=== PATIENT | male | born 1975 | race Caucasian/White ===

== ENCOUNTER 2021-02-12 02:58 | Emergency (ER) | payer SELFPAY ==
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
[2021-02-12 03:07] VITALS: BP 106/82; PULSE 86; RESP 12; O2SAT 100
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
--- NOTE | 2021-02-12 04:18 | PC.NURSE ---
Pt resting on cart with girlfriend at bedside. Both updated on poc and all questions and concerns addressed. Advised to press call button for assistance.
--- NOTE | 2021-02-12 04:18 | PC.NURSE ---
Girlfriend presented to bedside. Pt to ct via cart.
--- NOTE | 2021-02-12 04:32 | PC.NURSE ---
Pt returned from radiology.
--- NOTE | 2021-02-12 04:33 | PC.NURSE ---
screen making technician states pt refused xray so he only went for CT.
--- NOTE | 2021-02-12 04:39 | PC.NURSE ---
Pt ambulated in [place] to restroom with steady gait. C-collar remains in place. Pt alert and oriented x4. No complaints or concerns voiced at this time.
[2021-02-12 05:52] VITALS: BP 111/88; PULSE 95; RESP 12; TEMP 37; O2SAT 95
== END 2021-02-12 05:57 | disposition left against medical advice (07) ==
PROVIDERS: Emergency Provider Emergency Medicine
DX: M54.2 Cervicalgia (principal); S00.81XA Abrasion of other part of head, initial encounter; V28.4XXA Motorcycle driver injured in noncollision transport accident in traffic accident, initial encounter
CPT/HCPCS: 70450; 72125; 99284

== ENCOUNTER 2021-08-21 03:42 | Emergency (ER) | payer SELFPAY ==
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
[2021-08-21 04:17] VITALS: BP 131/81; PULSE 90; RESP 14; TEMP 36.6; O2SAT 100
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
--- NOTE | 2021-08-21 04:22 | PC.NURSE ---
to radiology.per cattle trader.
[2021-08-21 04:39] VITALS: BP 131/81; PULSE 90; RESP 14; TEMP 36.6; O2SAT 100
[2021-08-21] MEDS: MORPHINE SULFATE (*CRX) 4 MG/ML INJ IV PUSH ×2 (05:02→06:20)
[2021-08-21 06:26] VITALS: BP 130/78; PULSE 77; RESP 18; O2SAT 99
[2021-08-21 07:05] VITALS: BP 130/70; PULSE 77; RESP 16; O2SAT 99
== END 2021-08-21 07:21 | disposition home or self-care (01) ==
PROVIDERS: Emergency Provider Emergency Medicine
DX: S42.251A Displaced fracture of greater tuberosity of right humerus, initial encounter for closed fracture (principal); W11.XXXA Fall on and from ladder, initial encounter
CPT/HCPCS: 73030; 73200; 96374; 96376; 99284; A4565; J2270

== ENCOUNTER 2022-02-25 20:29 | Emergency (ER) | payer SELFPAY ==
[2022-02-25 20:32] VITALS: BP 134/88; PULSE 88; RESP 16; TEMP 36.9; O2SAT 100
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
[2022-02-25] MEDS: IBUPROFEN 400 MG TABLET 800 MG PO (23:27)
[2022-02-25] MEDS: ACETAMINOPHEN 325 MG TABLET 650 MG PO (23:28)
[2022-02-26 00:07] VITALS: BP 137/92; PULSE 68; RESP 16; O2SAT 99
[2022-02-26] MEDS: CYCLOBENZAPRINE HCL 10 MG TABLET PO (00:08)
[2022-02-26] MEDS: LIDOCAINE 5% PATCH 1 PATCH TRANSDERM (00:08)
[2022-02-26 01:13] VITALS: BP 114/87; PULSE 66; RESP 16; O2SAT 98
== END 2022-02-26 01:15 | disposition home or self-care (01) ==
PROVIDERS: Emergency Provider Emergency Medicine
DX: M54.41 Lumbago with sciatica, right side (principal)
CPT/HCPCS: 99283; A9270

== ENCOUNTER 2023-02-12 02:45 | Emergency (ER) | payer OTHER, SELFPAY ==
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
--- NOTE | ~2023-02-12 | XR_ITS ---
EXAMINATION: XR chest 1V portable INDICATION: Chest pain TECHNIQUE: Portable AP chest at 0252 hours COMPARISON: 01/27/2015 FINDINGS: The lungs are free of acute opacities. No pleural effusion or pneumothorax. The cardiomedia stinal silhouette is normal. IMPRESSION: 1. No acute cardiopulmonary abnormality. Reviewed, dictated and finalized at location L.
--- NOTE | ~2023-02-12 | CT_ITS ---
EXAMINATION: CT cervical spine wo con DATE: 02/12/2023 03:20 INDICATION: Head injury. TECHNIQUE: Computed tomography (CT) of the cervical spine was performed without intravenous contrast. Automated exposure control and iterative reconstruction technique were employed. The dose-length pro duct was 681.00 mGy-cm. COMPARISON: CT cervical spine 02/12/2021 FINDINGS: There is 5 degrees dextrocurvature of cervical spine. There is kyphosis of cervical spine. There is 2 mm retrolisthesis of C5 on C6 and C6 on C7. Vertebral body heights are normal. There is se verely decreased disc height at C5-C6 and C6-C7. The following disc levels are specifically discussed : C2-C3: There is no uncovertebral joint osteoarthritis. There is no facet joint osteoarthritis. There is no neural foraminal stenosis. There is no central canal stenosis. C3-C4: There is no uncovertebral joint osteoarthritis. There is severe right and moderate left facet joint osteoarthritis. There is no neural foraminal stenosis. There is mild central canal stenosis. C4-C5: There is no uncovertebral joint osteoarthritis. There is mild right and moderate left facet eldon int osteoarthritis. There is no neural foraminal stenosis. There is no central canal stenosis. C5-C6: There is severe bilateral uncovertebral joint osteoarthritis. There is mild bilateral facet eldon int osteoarthritis. There is moderate bilateral neural foraminal stenosis. There is mild central larissa l stenosis. C6-C7: There is severe bilateral uncovertebral joint osteoarthritis. There is mild bilateral facet eldon int osteoarthritis. There is mild right and moderate left neural foraminal stenosis. There is mild ce ntral canal stenosis. C7-T1: There is no uncovertebral joint osteoarthritis. There is moderate right and mild left facet eldon int osteoarthritis. There is no neural foraminal stenosis. There is no central canal stenosis. IMPRESSION: 1. No fracture. 2. Severe cervical spondylosis. Reviewed, dictated and finalized at location A.
[2023-02-12] MEDS: MORPHINE SULFATE (*CRX) 4 MG/ML INJ IV PUSH ×2 (02:48→02:55)
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
[2023-02-12 03:06] LABS: Basophils Absolute Auto 0.15 K/mm3 (0.00-0.10); Basophils Percent Auto 1.3 % (0.0-1.0); Eosinophils Absolute Auto 0.65 K/mm3 (0.02-0.50); Eosinophils Percent Auto 5.6 % (1.0-6.0); Hematocrit 41.4 % (40.0-54.0); Hemoglobin 13.5 g/dL (14.0-18.0); Immature Granulocyte Absolute 0.12 K/mm3 (0.00-0.00); Lymphocytes Absolute Auto 4.07 K/mm3 (1.10-4.50); Lymphocytes Percent Auto 35.3 % (18.0-42.0); Mean Corpuscular HGB Conc 32.6 g/dL (32.0-36.0); Mean Corpuscular Hemoglobin 29.5 pg (27.0-31.0); Mean Corpuscular Volume 90.4 fL (78.0-102.0); Mean Platelet Volume 9.9 fl (8.7-11.0); Monocytes Absolute Auto 1.01 K/mm3 (0.10-0.90); Monocytes Percent Auto 8.8 % (2.0-11.0); Neutrophils Absolute Auto 5.5 K/mm3 (1.7-7.2); Platelet Count Result 393 K/mm3 (150-420); Red Blood Count 4.58 M/mm3 (4.70-6.10); Red Cell Distribution Width 12.8 % (11.6-14.4); White Blood Count 11.5 K/mm3 (4.8-10.8)
[2023-02-12 03:17] LABS: Prothrombin Time 10.7 Seconds (9.50-12.10)
[2023-02-12 03:19] LABS: Alanine Aminotransferase 31 U/L (16-63); Albumin Level 3.9 g/dL (3.4-5.0); Alkaline Phosphatase 86 U/L (46-116); Anion Gap 9 mmol/L (8-16); Aspartate Amino Transferase 27 U/L (15-37); Bilirubin,Total 0.2 mg/dL (0.00-1.00); Blood Urea Nitrogen 16 mg/dL (7-18); Carbon Dioxide 26 mmol/L (21-32); Chloride 104 mmol/L (98-108); Estimated Glomerular Filt Rate > 60; Glucose 126 mg/dL (70-99); Lipase 43 U/L (16-77); Magnesium 1.7 mg/dL (1.8-2.4); Osmolality Calculated 291 mOsm/kg (285-295); Potassium 3.8 mmol/L (3.5-5.1); Sodium 139 mmol/L (136-145); Total Protein 7.7 g/dL (6.4-8.2)
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
[2023-02-12 03:23] LABS: Ethanol < 3 mg/dL (0-6)
[2023-02-12 03:41] VITALS: BP 144/105; PULSE 89; RESP 18; TEMP 36.5; O2SAT 98
[2023-02-12 04:08] LABS: Influenza A QL RT-PCR Negative (Negative); Influenza B QL RT-PCR Negative (Negative); SARS-CoV-2 RNA PCR Negative (Negative)
[2023-02-12 04:09] LABS: RSV RNA, RT-PCR Negative (Negative)
--- NOTE | 2023-02-12 04:19 | PC.NURSE ---
pt transferred to [facility] in [place]. er to er transfer
[2023-02-12 04:37] VITALS: BP 138/98; PULSE 80; RESP 19; TEMP 36.5; O2SAT 98
--- NOTE | 2023-02-12 04:41 | PC.NURSE ---
MD Beach made multiple unsuccessful attempts to contact pt's mother ([phone]) and father ([phone]) per pt request.
== END 2023-02-12 04:43 | disposition short-term general hospital (02) ==
PROVIDERS: Emergency Provider Family Medicine
DX: S01.01XA Laceration without foreign body of scalp, initial encounter (principal); S22.31XA Fracture of one rib, right side, initial encounter for closed fracture; V20.09XA Other motorcycle driver injured in collision with pedestrian or animal in nontraffic accident, initial encounter; Z20.822 Contact with and (suspected) exposure to COVID-19
CPT/HCPCS: 36415; 70450; 71045; 71250; 72125; 74176; 80053; 80307; 83690; 83735; 85025; 85610; 86850; 86900; 86901; 87637; 96365; 96375; 99285; J2270; J2543; L0150